=== PATIENT | male | born 1980 | race Caucasian/White ===

== ENCOUNTER 2019-03-05 07:15 | Outpatient (CLI) | payer OTHER ==
--- NOTE | 2019-03-05 10:19 | ULT ---
ABDOMINAL ULTRASOUND: INDICATION: Followup hemangioma. COMPARISON: Comparison is made to an abdominal ultrasound exam dated 02/26/2019. FINDINGS: The abdominal ultrasound is unchanged from the 02/26/2019 study. The hyperechoic focus in the liver i s again seen. Differential considerations remain the same. Hepatic hemangioma is suspected but not confirmed. Liver, spleen, pancreas, gallbladder, aorta, IVC, and kidneys are unremarkable as imaged. IMPRESSION: The hypoechoic focus in the right lobe of the liver is unchanged from the recent exam from 02/26/2019. POS: [facility]
== END 2019-03-05 07:16 | disposition home or self-care (01) ==
LOC: BICULT 07:15
PROVIDERS: ATTEND Family Medicine
DX: R10.84 Generalized abdominal pain (principal)
CPT/HCPCS: 76700

== ENCOUNTER 2019-03-15 13:53 | Outpatient (CLI) | payer OTHER ==
[~2019-03-15 13:53] MED LIST: Gadobenate Dimeglumine 529 MG/1 ML (20ML VIAL) ONE
--- NOTE | 2019-03-15 16:08 | MRI ---
MRI ABDOMEN WITH AND WITHOUT CONTRAST: History: Abnormal ultrasound. Comparison: Ultrasound abdomen, 03-05-19. FINDINGS: No free pericardial fluid. No significant pleural effusion. No intrahepatic or extrahepatic biliary d ilatation. Pancreatic duct is normal. Spleen is unremarkable as well as the adrenal glands. No free fluid in the abdomen. The aortic contour is normal. No significant hepatosteatosis. Splenic size is normal. Small simple cyst hepatic segment 8 measuring approximately 5 mm. There is also a small cyst in hepat ic segment 7 measuring 5 mm. Small cystic hepatic segment 8 measuring 3 mm. 3 mm cyst hepatic segment 5. Portal vein is patent. Small cyst hepatic segment 3. Previously noted hypoechoic focus in the liver is not appreciated on today's exam. There could be an isointense/hemangioma with characteristics similar to the background liver. No solid enhancing mass i s appreciated. Pancreas is unremarkable. Adrenal glands are unremarkable. Kidneys are normal. IMPRESSION: Scattered small hepatic cysts. No solid abnormal enhancing mass is appreciated. POS: [facility]
== END 2019-03-15 13:54 | disposition home or self-care (01) ==
LOC: SCSMRI 13:53
PROVIDERS: ATTEND Internal Medicine
DX: K76.89 Other specified diseases of liver (principal); E80.4 Gilbert syndrome
CPT/HCPCS: 74183; A9577